=== PATIENT | male | born 1950 | race Caucasian/White ===

== ENCOUNTER 2018-02-14 16:57 | Inpatient (IN) | payer OTHER ==
--- NOTE | 2018-02-14 17:32 | EDPHY ---
H & P Stated Complaint: W/D Time Seen by Provider: 02/14/18 16:59 HPI/ROS: CHIEF COMPLAINT: "I am having trouble walking" HISTORY OF PRESENT ILLNESS: 67-year-old male arrives via ambulance from the [facility] [place]. Patient self transported from his home in [place] to [facility] this morning for evaluation of a scalp laceration. States that last evening approximately 9:00 p.m. While he had been drinking alcohol he sustained a mechanical fall falling forward impacting his head. He does admit to history of heavy alcohol abuse. He drove to [facility] this afternoon where he had CT scan of the head, C-spine, chest, abdomen, pelvis all which were negative for posttraumatic sequelae as well as left foot x-ray which is negative. He was discharged to [facility] however upon arrival there was unable to ambulate without assistance never transport to [facility] ER. States that this is a new complaint. He has no complaints of pain. No headache. No peripheral paresthesia, weakness, numbness. No chest pain. No nausea no vomiting. No hallucination. REVIEW OF SYSTEMS: 10 systems reviewed and negative with the exception of the elements mentioned in the history of present illness PAST MEDICAL/SURGICAL HISTORY: no anticoagulant use, no relevant medical/ surgical history SOCIAL HISTORY: Positive for heavy daily alcohol abuse. PHYSICAL EXAM 1) GENERAL: Well-developed, well-nourished, alert and oriented. Appears to be in no acute distress. Answering questions appropriately. 2) HEAD: Normocephalic, facial and scalp laceration measuring 18 cm which is stapled and sutured. 3) HEENT: Pupils equal, round, reactive to light bilaterally. Negative Horners. Nasopharynx, oropharynx, clear. No deformity or angulation of nose. No septal hematoma. No rhinorrhea. No oral trauma. Ears bilaterally with normal tympanic membranes. No hemotympanum. No fluid or blood in the external auditory canal. No raccoon eyes. No Cohen sign. Teeth are normally aligned with no gross malocclusion, TMJ bilaterally nontender, facial bones nontender including the zygomatic arch, maxilla mandible. 4) NECK: No cervical collar is on. Posterior cervical spine is nontender, no stepoff, no effusion. Full range of motion which does not elicit any midline cervical spine pain, no posterior midline tenderness, no step-off. 5) LUNGS: Clear to auscultation bilaterally, no wheezes, no rhonchi, no retractions. No obvious signs of trauma. No chest wall pain. No flaring, no grunting. Moving symmetrically. No crepitus. 6) HEART: [Regular rate and rhythm, 7) ABDOMEN: No guarding, no rebound, no focal tenderness, no peritoneal signs, no signs of trauma, no ecchymosis 8) MUSCULOSKELETAL: Moving all extremities, no focal areas of tenderness, no obvious trauma. 9) BACK: No midline vertebral tenderness, no fluctuance, no step-off, no obvious trauma, no visual or palpable abnormality. 10) SKIN: No laceration. No abrasion 11) NEURO: Awake, alert, and oriented to person, place and time. Answers questions appropriately. There were no obvious focal neurologic abnormalities. Cerebellar dysfunction noted , notably [id number] and ingram to heel are difficult for the patient. Cranial nerves 2 through to 12 intact. Normal steady gait. Upper and lower extremities bilaterally with strength 5 / 5, reflexes 2+. DIFFERENTIAL DIAGNOSIS: In no particular order include but limited to delirium tremens, acute alcohol withdrawal, posterior circulation stroke - Personal History Current Tetanus Diphtheria and Acellular Pertussis (TDAP): Yes Tetanus Vaccine Date: 02/14/18 - Medical/Surgical History Hx Asthma: No Hx Chronic Respiratory Disease: No Hx Diabetes: No Hx Cardiac Disease: No Hx Renal Disease: No Hx Cirrhosis: No Hx Alcoholism: Yes Hx HIV/AIDS: No Hx Splenectomy or Spleen Trauma: No Other PMH: ALCOHOLISM, FALLS, HTN, DEPRESSION, OSTEOPOROSIS, HIGH CHOLESTEROL - Social History Smoking Status: Never smoked Constitutional: Initial Vital Signs Temperature (C) 36.7 C 02/14/18 16:58 Heart Rate 92 02/14/18 16:58 Respiratory Rate 16 02/14/18 16:58 Blood Pressure 127/79 H 02/14/18 16:58 O2 Sat (%) 94 02/14/18 16:58 O2 Delivery Mode Room Air Allergies/Adverse Reactions: Penicillins Allergy (Verified 02/14/18 21:17) Unknown Sulfa (Sulfonamide Antibiotics) Allergy (Verified 02/14/18 21:17) Unknown Home Medications: Medication Instructions Recorded Acetaminophen [Tylenol 325mg (*)] 650 mg PO DAILY 02/14/18 Aspirin [Aspirin 81mg (*)] 81 mg PO BID 02/14/18 DULoxetine [Cymbalta 60 MG (*)] 60 mg PO DAILY 02/14/18 Herbals/Supplements -Info Only 1 ea PO DAILY 02/14/18 Hydrochlorothiazide [HCTZ (*)] 50 mg PO DAILY 02/14/18 Lisinopril [Zestril 10 mg (*)] 10 mg PO DAILY 02/14/18 Loratadine [Claritin] 10 mg PO DAILY PRN 02/14/18 Multivitamins [Multivitamin (*)] 1 each PO DAILY 02/14/18 Pseudoephedrine HCl [Sudafed 12 240 mg PO DAILY PRN 02/14/18 Hour 120mg (*)] Simvastatin [Zocor] 20 mg PO HS 02/14/18 Zolpidem Tartrate [Ambien 5MG (*)] 10 mg PO HS 02/14/18 buPROPion SR [Wellbutrin 150mg SR 150 mg PO BID 02/14/18 (*)] Medical Decision Making - Diagnostics Imaging Results: Imaging Impressions Brain MRI 02/14/18 17:40 Impression: 1. Subarachnoid blood suspected along the anteromedial aspect of left temporal lobe and left side of the interpeduncular cistern related to recent trauma. 2. Soft tissue contusion over the left frontal and temporal bones with skin rene present. 3. No abnormal intracranial mass or enhancement. If symptoms worsen, additional imaging may be necessary. Findings discussed with Geovanna LIZ at 20:36 hour, 02/14/2018. Images reviewed myself ED Course/Re-evaluation: 5:35 p.m.: I reviewed the patient's medical records from [facility] few hours ago which include CT imaging of the head C-spine chest abdomen and pelvis all which were negative for posttraumatic sequelae. Patient is answering questions appropriately and I do not think exhibits signs of delirium. He is able to consult with and the bed and take a few steps however soon as he tries to turn he starts to fall over and is unable to ambulate without assistance. While he was at [facility] this afternoon his alcohol level was 18. Discussed case with secondary supine position Dr. Luis Alberto Diamond at this time. We will obtain MRI of the brain. 8:19 p.m.: Patient has been re-evaluated with serial exams. He is evaluated at this time. Watching TV, answering questions appropriately, smiling. However the patient attempted to ambulate is unable to ambulate without assistance, complaining of lightheadedness, dizziness. 840 pm: Consultation with Neurosurgery Dr. Ferreira will consult for Neurosurgery regarding the patient's traumatic subarachnoid 8:45 p.m.: Consultation with Dr. Luigi Moore, trauma service, recommends hospitalist or Neurosurgery primary admission as the patient has single system injury 8:48 pm: Consultation with Dr. Adler who will admit primarily - Data Points Laboratory Results: Laboratory Results 02/14/18 17:24 02/14/18 17:24 02/14/18 02/14/18 02/14/18 17:50 17:24 17:24 WBC RBC Hgb Hct MCV MCH MCHC RDW Plt Count MPV Neut % (Auto) Lymph % (Auto) Hamlin % (Auto) Eos % (Auto) Baso % (Auto) Nucleat RBC Rel Count Absolute Neuts (auto) Absolute Lymphs (auto) Absolute Monos (auto) Absolute Eos (auto) Absolute Basos (auto) Absolute Nucleated RBC Immature Gran % Immature Gran # PT INR APTT Sodium 132 mEq/L L mEq/L (135-145) Potassium 4.2 mEq/L mEq/L (3.3-5.0) Chloride 96 mEq/L L mEq/L (97-110) Carbon Dioxide 26 mEq/l mEq/l (22-31) Anion Gap 10 mEq/L mEq/L (6-14) BUN 49 mg/dL H mg/dL (7-23) Creatinine 1.6 mg/dL H mg/dL (0.7-1.3) Estimated GFR 44 Glucose 103 mg/dL H mg/dL (70-100) Calcium 9.3 mg/dL mg/dL (8.5-10.4) Total Bilirubin 1.0 mg/dL mg/dL (0.1-1.4) Conjugated Bilirubin 0.4 mg/dL mg/dL (0.0-0.5) Unconjugated Bilirubin 0.6 mg/dL mg/dL (0.0-1.1) AST 28 IU/L IU/L (17-59) ALT 40 IU/L IU/L (21-72) Alkaline Phosphatase 57 IU/L IU/L (38-126) Ammonia < 9.0 uMOL/L L uMOL/L (9.0-30.0) Total Protein 6.0 g/dL L g/dL (6.3-8.2) Albumin 3.8 g/dL g/dL (3.5-5.0) Ethyl Alcohol < 10 mg/dL mg/dL (0-10) 02/14/18 02/14/18 17:24 17:24 WBC 7.13 10^3/uL 10^3/uL (3.80-9.50) RBC 3.92 10^6/uL L 10^6/uL (4.40-6.38) Hgb 12.9 g/dL L g/dL (13.7-17.5) Hct 37.4 % L % (40.0-51.0) MCV 95.4 fL fL (81.5-99.8) MCH 32.9 pg pg (27.9-34.1) MCHC 34.5 g/dL g/dL (32.4-36.7) RDW 13.2 % % (11.5-15.2) Plt Count 150 10^3/uL 10^3/uL (150-400) MPV 9.6 fL fL (8.7-11.7) Neut % (Auto) 77.7 % H % (39.3-74.2) Lymph % (Auto) 10.9 % L % (15.0-45.0) Hamlin % (Auto) 10.4 % % (4.5-13.0) Eos % (Auto) 0.3 % L % (0.6-7.6) Baso % (Auto) 0.1 % L % (0.3-1.7) Nucleat RBC Rel Count 0.0 % % (0.0-0.2) Absolute Neuts (auto) 5.54 10^3/uL 10^3/uL (1.70-6.50) Absolute Lymphs (auto) 0.78 10^3/uL L 10^3/uL (1.00-3.00) Absolute Monos (auto) 0.74 10^3/uL 10^3/uL (0.30-0.80) Absolute Eos (auto) 0.02 10^3/uL L 10^3/uL (0.03-0.40) Absolute Basos (auto) 0.01 10^3/uL L 10^3/uL (0.02-0.10) Absolute Nucleated RBC 0.00 10^3/uL 10^3/uL (0-0.01) Immature Gran % 0.6 % % (0.0-1.1) Immature Gran # 0.04 10^3/uL 10^3/uL (0.00-0.10) PT 14.3 SEC SEC (12.0-15.0) INR 1.09 (0.83-1.16) APTT 30.0 SEC SEC (23.0-38.0) Sodium Potassium Chloride Carbon Dioxide Anion Gap BUN Creatinine Estimated GFR Glucose Calcium Total Bilirubin Conjugated Bilirubin Unconjugated Bilirubin AST ALT Alkaline Phosphatase Ammonia Total Protein Albumin Ethyl Alcohol Departure - Departure Disposition: [facility] Inpatient Acute Clinical Impression: Subarachnoid hemorrhage, History of alcohol abuse Condition: Fair
[2018-02-14] MEDS ORDERED: LORazepam 2 MG/ML INJ IVP PRN (17:33)
[2018-02-14] MEDS ORDERED: LORazepam 1 MG TAB PO PRN (17:33)
[2018-02-14 17:56] LABS: INR 1.09 (0.83-1.16); PLATELET COUNT 150 10^3/uL (150-400); PROTIME(PATIENT) 14.3 SEC (12.0-15.0)
[2018-02-14] MEDS ORDERED: GADOBUTROL 10 ML VIAL IVP ONE (19:41)
[2018-02-14] MEDS ORDERED: ONDANSETRON DISINTEGRATING 4 MG TAB PO PRN (22:24)
[2018-02-14] MEDS ORDERED: ONDANSETRON 4 MG/2 ML VIAL IVP PRN (22:24)
[2018-02-14] MEDS ORDERED: FLUMAZENIL 0.5 MG/5 ML MDV IVP PRN (22:36)
--- NOTE | 2018-02-14 23:43 | PDGENHP ---
History and Physical - Chief Complaint Fall, ataxia - History of Present Illness 67 yo M w/ ETOH use d/o, HTN, and depression presents after multiple falls. The patient tells me he has fallen each of the last 3 nights. He has injured his R hip, L foot, and his forehead. He underwent trauma evaluation at [facility] (CTH, CT C-spine, CT C/A/P, L foot XR), which was all negative. He was sent to the [facility] but continued to have trouble with his gait so was sent to [facility] ED. In our ED and brain MRI revealed a traumatic subarachnoid hemorrhage so he is being admitted for observation of this. He denies neurologic symptoms to me at this time. Of note, he drinks 2-4 glasses of vodka daily. He has done this for several years. He has no recent history of ETOH withdrawal because he has drank every day without stopping for several years. Case discussed with Dr. Adler; records reviewed and summarized above. History Information - Allergies/Home Medication List Allergies/Adverse Reactions: Penicillins Allergy (Verified 02/14/18 21:17) Unknown Sulfa (Sulfonamide Antibiotics) Allergy (Verified 02/14/18 21:17) Unknown Home Medications: Acetaminophen [Tylenol 325mg (*)] 650 mg PO DAILY 02/14/18 [Last Taken Unknown] Aspirin [Aspirin 81mg (*)] 81 mg PO BID 02/14/18 [Last Taken Unknown] DULoxetine [Cymbalta 60 MG (*)] 60 mg PO DAILY 02/14/18 [Last Taken Unknown] Herbals/Supplements -Info Only 1 ea PO DAILY 02/14/18 [Last Taken Unknown] Hydrochlorothiazide [HCTZ (*)] 50 mg PO DAILY 02/14/18 [Last Taken Unknown] Lisinopril [Zestril 10 mg (*)] 10 mg PO DAILY 02/14/18 [Last Taken Unknown] Loratadine [Claritin] 10 mg PO DAILY PRN 02/14/18 [Last Taken Unknown] Multivitamins [Multivitamin (*)] 1 each PO DAILY 02/14/18 [Last Taken Unknown] Pseudoephedrine HCl [Sudafed 12 Hour 120mg (*)] 240 mg PO DAILY PRN 02/14/18 [ Last Taken Unknown] Simvastatin [Zocor] 20 mg PO HS 02/14/18 [Last Taken Unknown] Zolpidem Tartrate [Ambien 5MG (*)] 10 mg PO HS 02/14/18 [Last Taken Unknown] buPROPion SR [Wellbutrin 150mg SR (*)] 150 mg PO BID 02/14/18 [Last Taken Unknown] I have personally reviewed and updated: family history, medical history - Past Medical History hypertension Additional medical history: Depression - Surgical History Reports: no pertinent surgical hx - Family History Positive for: cancer (Breast, lung) - Social History Smoking Status: Former smoker Alcohol Use: Heavy Review of Systems Review of Systems: ROS: 10pt was reviewed & negative except for what was stated in HPI & below Physical Exam Physical Exam: Temp Pulse Resp BP Pulse Ox 36.9 C 100 14 137/78 H 90 L 02/14/18 23:35 02/14/18 23:35 02/14/18 23:35 02/14/18 23:35 02/14/18 23:35 Constitutional: no apparent distress, appears nourished Eyes: PERRL, EOMI Ears, Nose, Mouth, Throat: moist mucous membranes, other (L frontal laceration with sutures in place) Cardiovascular: regular rate and rhythym, no murmur, rub, or gallop Respiratory: no respiratory distress, clear to auscultation Gastrointestinal: normoactive bowel sounds, soft, non-tender abdomen Skin: warm, normal color Neurologic: AAOx3, CN II-XII Intact Psychiatric: interacting appropriately, not anxious Lab Data & Imaging Review 02/14/18 17:24 02/14/18 17:24 WBC 7.13 10^3/uL (3.80-9.50) 02/14/18 17:24 RBC 3.92 10^6/uL (4.40-6.38) L 02/14/18 17:24 Hgb 12.9 g/dL (13.7-17.5) L 02/14/18 17:24 Hct 37.4 % (40.0-51.0) L 02/14/18 17:24 MCV 95.4 fL (81.5-99.8) 02/14/18 17:24 MCH 32.9 pg (27.9-34.1) 02/14/18 17:24 MCHC 34.5 g/dL (32.4-36.7) 02/14/18 17:24 RDW 13.2 % (11.5-15.2) 02/14/18 17:24 Plt Count 150 10^3/uL (150-400) 02/14/18 17:24 MPV 9.6 fL (8.7-11.7) 02/14/18 17:24 Neut % (Auto) 77.7 % (39.3-74.2) H 02/14/18 17:24 Lymph % (Auto) 10.9 % (15.0-45.0) L 02/14/18 17:24 Johnston % (Auto) 10.4 % (4.5-13.0) 02/14/18 17:24 Eos % (Auto) 0.3 % (0.6-7.6) L 02/14/18 17:24 Baso % (Auto) 0.1 % (0.3-1.7) L 02/14/18 17:24 Nucleat RBC Rel Count 0.0 % (0.0-0.2) 02/14/18 17:24 Absolute Neuts (auto) 5.54 10^3/uL (1.70-6.50) 02/14/18 17:24 Absolute Lymphs (auto) 0.78 10^3/uL (1.00-3.00) L 02/14/18 17:24 Absolute Monos (auto) 0.74 10^3/uL (0.30-0.80) 02/14/18 17:24 Absolute Eos (auto) 0.02 10^3/uL (0.03-0.40) L 02/14/18 17:24 Absolute Basos (auto) 0.01 10^3/uL (0.02-0.10) L 02/14/18 17:24 Absolute Nucleated RBC 0.00 10^3/uL (0-0.01) 02/14/18 17:24 Immature Gran % 0.6 % (0.0-1.1) 02/14/18 17:24 Immature Gran # 0.04 10^3/uL (0.00-0.10) 02/14/18 17:24 PT 14.3 SEC (12.0-15.0) 02/14/18 17:24 INR 1.09 (0.83-1.16) 02/14/18 17:24 APTT 30.0 SEC (23.0-38.0) 02/14/18 17:24 Sodium 132 mEq/L (135-145) L 02/14/18 17:24 Potassium 4.2 mEq/L (3.3-5.0) 02/14/18 17:24 Chloride 96 mEq/L (97-110) L 02/14/18 17:24 Carbon Dioxide 26 mEq/l (22-31) 02/14/18 17:24 Anion Gap 10 mEq/L (6-14) 02/14/18 17:24 BUN 49 mg/dL (7-23) H 02/14/18 17:24 Creatinine 1.6 mg/dL (0.7-1.3) H 02/14/18 17:24 Estimated GFR 44 02/14/18 17:24 Glucose 103 mg/dL (70-100) H 02/14/18 17:24 Calcium 9.3 mg/dL (8.5-10.4) 02/14/18 17:24 Total Bilirubin 1.0 mg/dL (0.1-1.4) 02/14/18 17:24 Conjugated Bilirubin 0.4 mg/dL (0.0-0.5) 02/14/18 17:24 Unconjugated Bilirubin 0.6 mg/dL (0.0-1.1) 02/14/18 17:24 AST 28 IU/L (17-59) 02/14/18 17:24 ALT 40 IU/L (21-72) 02/14/18 17:24 Alkaline Phosphatase 57 IU/L (38-126) 02/14/18 17:24 Ammonia < 9.0 uMOL/L (9.0-30.0) L 02/14/18 17:50 Total Protein 6.0 g/dL (6.3-8.2) L 02/14/18 17:24 Albumin 3.8 g/dL (3.5-5.0) 02/14/18 17:24 Ethyl Alcohol < 10 mg/dL (0-10) 02/14/18 17:24 Imaging Review: Imaging Impressions Brain MRI 02/14/18 17:40 Impression: 1. Subarachnoid blood suspected along the anteromedial aspect of left temporal lobe and left side of the interpeduncular cistern related to recent trauma. 2. Soft tissue contusion over the left frontal and temporal bones with skin rene present. 3. No abnormal intracranial mass or enhancement. If symptoms worsen, additional imaging may be necessary. Findings discussed with Geovanna LIZ at 20:36 hour, 02/14/2018. Assessment & Plan Assessment: 67 yo M w/ ETOH use disorder, HTN, and depression presents with ataxia and traumatic SAH. Plan: 1. Subarachnoid hemorrhage - Due to trauma from a fall; he denies neurologic symptoms at this time but has been ataxic. However, it seems the ataxia preceded the SAH itself. - Admit for observation - q4h neuro check - Maintain SBP<160 - Neurosurgery (Dr. Ferreira) consulted, will evaluate in the morning 2. Ataxia - I suspect this is related to heavy ETOH use. This has led to falls each of the last 3 nights. - High dose thiamine IV - PT/OT evaluations 3. ETOH use disorder - Drink 2-4 glasses of vodka daily and has done so for several years. No history of recent withdrawal due to daily drinking. - [facility] protocol ordered - High dose thiamine as above - Daily MVI, folate 4. HTN - Continue home medications pending reconciliation 5. Depression - Likely contributing to heavy drinking; continue antidepressants pending reconciliation Diet - Regular Code - Full Ppx - SCDs Dispo - Admit under observation status
[2018-02-14] MEDS: THIAMINE HCL 500 MG in NS 100 ML IV SCH (23:45)
[2018-02-14] MEDS ORDERED: hydrALAZINE 25 MG TAB PO PRN (23:47)
[2018-02-15 04:58] LABS: PLATELET COUNT 122 10^3/uL (150-400)
[2018-02-15] MEDS: MULTIVITAMINS 1 EACH TAB PO SCH (08:48)
[2018-02-15] MEDS: FOLIC ACID 1 MG TAB PO SCH (08:48)
[2018-02-15] MEDS: THIAMINE HCL 500 MG in NS 100 ML IV SCH (08:49)
--- NOTE | 2018-02-15 10:54 | HOSPPROG ---
Hospitalist Progress Note Assessment/Plan: 67-year-old alcoholic is admitted after multiple falls presenting with a subarachnoid hemorrhage. He had initially had presented to [facility] had a CT so again done which did not show any bleeding had some stitches placed and was discharged to the [facility]. When he continued to have difficulty ambulating dark refused to admit him and sent him to the emergency department here where he was diagnosed with a traumatic subarachnoid hemorrhage by MRI and is admitted for observation. Currently he denies any significant discomfort # subarachnoid hemorrhage, await Neurosurgery evaluation for planned # alcoholism 2 to 4+ glasses of vodka daily. He has been drinking continually for 22 years and has not been abstinent for more than a day. He denies any withdrawal symptoms however I do not know if he has ever been sober that long. * Continue CIWA * Disposition once neurosurgery evaluation * pt with significant abnormal gait and ataxia, at risk for ongoing falls. With his SAH, needs additional midnight stay for therapy and eval of this # abnormal gait, high-dose vitamin B12 and thiamine given continue PT Subjective: Patient new to me and chart reviewed, somewhat sleepy but speech is fluent and he is currently appropriate. Objective: Vital Signs Temp Pulse Resp BP Pulse Ox 36.7 C 89 17 134/82 H 91 L 02/15/18 07:25 02/15/18 07:25 02/15/18 07:25 02/15/18 07:25 02/15/18 07:25 Laboratory Results 02/15/18 04:41 02/15/18 04:41 02/14/18 02/15/18 02/16/18 05:59 05:59 05:59 Intake Total 555 Output Total 450 Balance 105 PT 14.3 SEC (12.0-15.0) 02/14/18 17:24 INR 1.09 (0.83-1.16) 02/14/18 17:24 - Physical Exam Constitutional: no apparent distress, chronically ill appearing, unkempt Eyes: PERRL Ears, Nose, Mouth, Throat: moist mucous membranes Cardiovascular: regular rate and rhythym Respiratory: no respiratory distress Gastrointestinal: soft, non-tender abdomen Genitourinary: no bladder fullness Skin: normal color, other (Laceration stapled on his left frontal area) Musculoskeletal: abnormal gait Neurologic: No AAOx3 (Did not know date) Psychiatric: interacting appropriately, not anxious ICD10 Worksheet Patient Problems: Problems Problem Status Onset Subarachnoid hemorrhage Acute History of alcohol abuse Acute
[2018-02-15] MEDS: LORazepam 2 MG/ML INJ IVP PRN ×2 (18:54→23:44)
[2018-02-15] MEDS: buPROPion SR 150 MG TAB PO SCH (20:08)
[2018-02-15] MEDS: ATORVASTATIN CALCIUM 10 MG TAB PO SCH (20:08)
[2018-02-15] MEDS: ZOLPIDEM TARTRATE 5 MG TAB PO SCH (20:08)
--- NOTE | 2018-02-15 21:01 | GCON ---
The patient was seen by Dr. Galvan at approximately 1530, who felt it was appropriate to sign off on the same day. REASON FOR CONSULTATION: Traumatic subarachnoid hemorrhage after 3 repeated falls. HISTORY OF PRESENT ILLNESS: The patient is a 67-year-old male with a history of alcohol abuse. He has had multiple falls while drinking over the last 3 nights. He was seen in the [facility] after one of his falls, received multiple scans, all of which were negative, and he was just discharged to [facility]. At [facility] he was found to have ataxic gait and was sent to [facility] ED for admission. A brain MRI was ordered in the ED. Imaging showed a questionable small amount of subarachnoid blood along the anterior medial aspect of the left temporal lobe on the left side of the interpeduncular cistern. The patient had no other neurological injuries. He was admitted for observation. Seen at the bedside this morning. He has no complaints of dizziness, nausea, vomiting, lethargy, double vision, tinnitus. He states his balance has been off for the past several days. He admits drinking while this is. He does state that he has had some increased anxiety and increased dizziness. He had no weakness numbness, or tingling. PAST MEDICAL HISTORY: Includes hypertension and depression. The patient also states anxiety. PAST SURGICAL HISTORY: He had no surgical history reported. FAMILY HISTORY: Positive for breast and lung cancer. SOCIAL HISTORY: He is a former smoker. He is a heavy drinker. He reports 2 to 4 glasses of vodka daily. ALLERGIES: Penicillins, sulfonamide antibiotics. HOME MEDICATIONS: Include Tylenol 650 mg daily, aspirin 81 mg twice a day, Cymbalta 60 mg daily. The patient takes herbal supplements daily. Hydrochlorothiazide 50 mg daily. Lisinopril 10 mg daily. Loratadine 10 mg daily, multivitamin daily. Sudafed 240 mg daily as needed, simvastatin 20 mg nightly, Ambien 10 mg as needed at night, and Wellbutrin 150 mg sustained release twice daily. REVIEW OF SYSTEMS: Negative except as stated above in the HPI. PHYSICAL EXAMINATION: GENERAL APPEARANCE: The patient is alert and oriented x3. Speech is clear and fluent. HEENT: His extraocular movements are intact. His pupils are equal and reactive to light. He has a large laceration on his left forehead extending to the scalp that is sutured shut, and some ecchymosis around the left eye. NEUROLOGICAL: He has no facial droop. Tongue protrusion is midline. Cranial nerves 2 through 12 appeared grossly intact. He moves all extremities x4. He has no pronator drift. Strength is 5/5 and equal. Gait exam was deferred. The patient's sensation is intact to light touch. This is a nonfocal neurological exam. ASSESSMENT AND PLAN: This is a 67-year-old male with a history of alcohol use. He re-presented to the emergency room after multiple days of falls, a large laceration of the scalp, and ataxic gait. Imaging shows a questionable very small subarachnoid hemorrhage that is not compressive, and the patient is neurologically intact. The patient is admitted with blood pressure less than 160, which is fine. He may remain on q.4 hours neuro checks for the duration of his admission. No need for any further scans. We would recommend holding aspirin for 7 days total given the possibility of intracranial blood. We would recommend workup for his questionable dizziness if this is thought not to be related to his alcohol use. The patient will be seen by Dr. Galvan later this afternoon at which time Neurosurgery will likely sign off. The patient was seen by Dr. Galvan at approximately 1530, who felt it was appropriate to sign off on the same day. Thank you for this consultation. Please call Neurosurgery with any additional questions or concerns. Please call us with any changes in his physical exam. /[id number]/MODL and [id number]/MODL MTDD
[2018-02-16] MEDS: ACETAMINOPHEN 325 MG TAB PO PRN ×2 (07:02→16:55)
[2018-02-16] MEDS: LISINOPRIL 10 MG TAB PO SCH (08:36)
[2018-02-16] MEDS: MULTIVITAMINS 1 EACH TAB PO SCH ×2 (08:36→09:07)
[2018-02-16] MEDS: DULoxetine 60 MG CAP PO SCH (08:36)
[2018-02-16] MEDS: buPROPion SR 150 MG TAB PO SCH ×2 (08:36→21:04)
[2018-02-16] MEDS: FOLIC ACID 1 MG TAB PO SCH (08:37)
[2018-02-16] MEDS: THIAMINE HCL 500 MG in NS 100 ML IV SCH (08:37)
[2018-02-16] MEDS ORDERED: CETIRIZINE 10 MG TAB PO PRN (09:00)
[2018-02-16] MEDS: LORazepam 2 MG/ML INJ IVP PRN ×4 (09:11→21:05)
[2018-02-16] MEDS: HYDROCHLOROTHIAZIDE 50 MG TAB PO SCH (09:41)
--- NOTE | 2018-02-16 10:52 | HOSPPROG ---
Hospitalist Progress Note Assessment/Plan: 67-year-old alcoholic is admitted after multiple falls presenting with a subarachnoid hemorrhage. He had initially had presented to [facility] had a CT so again done which did not show any bleeding had some stitches placed and was discharged to the [facility]. When he continued to have difficulty ambulating dark refused to admit him and sent him to the emergency department here where he was diagnosed with a traumatic subarachnoid hemorrhage by MRI and is admitted for observation. Currently he denies any significant discomfort. He is quite ataxic and high fall risk from his alcoholism and withdrawal. # subarachnoid hemorrhage, resume asa in 7 days, no further imaging required per NS # alcoholism 2 to 4+ glasses of vodka daily. He has been drinking continually for 22 years and has not been abstinent for more than a day. He denies any withdrawal symptoms however I do not know if he has ever been sober that long. * Continue CIWA * PT/OT eval currently recommending SNF, Pt high fall risk. * Will continue CIWA, PT and have DC planning talk with patient and family about DC plans. # abnormal gait, high-dose vitamin B12 and thiamine given continue PT Subjective: depression about current situation. Determined to stop drinking but has been alcoholic for many years. Daughters are having issues so doesn't want to share current condition with them. Realizes he needs help. Objective: Vital Signs Temp Pulse Resp BP Pulse Ox 36.8 C 83 18 148/87 H 93 02/16/18 08:33 02/16/18 08:33 02/16/18 08:33 02/16/18 08:33 02/16/18 08:33 Laboratory Results 02/15/18 04:41 02/16/18 04:56 02/15/18 02/16/18 02/17/18 05:59 05:59 05:59 Intake Total 555 650 300 Output Total 450 Balance 105 650 300 PT 14.3 SEC (12.0-15.0) 02/14/18 17:24 INR 1.09 (0.83-1.16) 02/14/18 17:24 - Physical Exam Constitutional: chronically ill appearing Eyes: PERRL Cardiovascular: regular rate and rhythym Respiratory: no respiratory distress, reduced air movement Gastrointestinal: soft, non-tender abdomen Genitourinary: no bladder fullness Skin: warm, other (Large laceration on his left forehead, will eventually need stitches out) Musculoskeletal: abnormal gait Psychiatric: interacting appropriately ICD10 Worksheet Patient Problems: Problems Problem Status Onset Subarachnoid hemorrhage Acute History of alcohol abuse Acute
[2018-02-16] MEDS ORDERED: MAGNESIUM HYDROXIDE 30 ML UDCUP PO PRN (14:49)
[2018-02-16] MEDS ORDERED: BISACODYL 10 MG SUPP PR PRN (14:49)
[2018-02-16] MEDS ORDERED: LACTULOSE 20 GM/30 ML UDCUP PO PRN (14:49)
[2018-02-16] MEDS ORDERED: POLYETHYLENE GLYCOL 3350 17 GM PKT PO PRN (14:49)
--- NOTE | 2018-02-16 17:04 | ASMTCMCOM ---
CM Note CM Note Notes: Long conversation with patient. He recently moved and hasn't fully unpacked this is difficult for him-living in disorganization. 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 Patient thinks that he can ask for 2 weeks off to get organized, find a therapist, go to an AA grp at his [facility], check with his ins about IOP ETOH tx, and ask for family/friend support in unpacking and getting organized. Date Signed: 02/16/2018 05:04 PM Electronically Signed By:Kerry Mcgee LCSW
--- NOTE | 2018-02-16 19:19 | PDMN ---
Medical Necessity Medical necessity: [facility] substance related disorder- SAH on MRI- due to fall, changed to INPT 02/15/18 for ongoing PT/OT high fall risk due to severe ETOH use 2-4 glasses vodka daily X 22 yrs. pt on CIWA , ataxic, further monitoring and tx needed > 2 MN
[2018-02-16] MEDS: ATORVASTATIN CALCIUM 10 MG TAB PO SCH (21:04)
[2018-02-16] MEDS: SENNOSIDES/DOCUSATE SODIUM TAB PO SCH (21:06)
[2018-02-16] MEDS: ZOLPIDEM TARTRATE 5 MG TAB PO SCH (21:06)
[2018-02-17] MEDS: THIAMINE HCL 100 MG TAB PO SCH (10:59)
[2018-02-17] MEDS: buPROPion SR 150 MG TAB PO SCH ×2 (11:00→21:49)
[2018-02-17] MEDS: DULoxetine 60 MG CAP PO SCH (11:00)
[2018-02-17] MEDS: FOLIC ACID 1 MG TAB PO SCH (11:00)
[2018-02-17] MEDS: LISINOPRIL 10 MG TAB PO SCH (11:00)
[2018-02-17] MEDS: HYDROCHLOROTHIAZIDE 50 MG TAB PO SCH (11:00)
[2018-02-17] MEDS: SENNOSIDES/DOCUSATE SODIUM TAB PO SCH ×2 (11:01→21:49)
[2018-02-17] MEDS: MULTIVITAMINS 1 EACH TAB PO SCH ×2 (11:04)
[2018-02-17] MEDS: ACETAMINOPHEN 325 MG TAB PO PRN (14:17)
--- NOTE | 2018-02-17 16:23 | ASMTCMCOM ---
CM Note CM Note Notes: I met with patient to discuss PT recommendation for SNF or home with supervision. He wants to go home and does not want to inconvience either of his two daughters with supervising him. He does, however, want a few more days in the hospital or some other "lower level of care" before returning home. I explained how SNF rehab would fulfill this desire. Patient is anxious about going because he won't be able to access his work things (he works from home), but he realizes that it could be better for him prison. He does endorse wanting to quit drinking and believes that this hospitalization has been a "wake up call." He says that he will have his daughters visit [facility] and [facility] to see if they would be suitable. I encouraged him to make a decision in anticipation of d/c in the next day or so. Case Management will follow. Date Signed: 02/17/2018 04:23 PM Electronically Signed By:Paz Branch RN
--- NOTE | 2018-02-17 18:02 | HOSPPROG ---
Hospitalist Progress Note Assessment/Plan: Subjective Follow-up on subarachnoid hemorrhage. Patient's daughter was present at the bedside today and we had a discussion regarding his hypertension management and depression and alcohol use. He and his daughter were also concerned about a tremor that he has had. He states his father had a similar tremor. He notes that when he extends his hands outward. No pill rolling tremor has been noted by his daughter. Patient states his last drink of alcohol was 4 days ago. Objective Vital signs as detailed below Exam General-awake alert conversant no acute distress Heart-regular rate and rhythm no murmurs Lungs-Clear to auscultation with normal respiratory effort Abdomen-soft nontender nondistended normal bowel sounds -no Morin catheter in place Extremities-no significant pitting edema or calf pain with palpation Skin-left frontal laceration sutured without any significant erythema or purulence Neuro-no horizontal nystagmus appreciated Labs as detailed below. Assessment and plan Subarachnoid hemorrhage-neurosurgery has consulted and no intervention currently planned. Continue to monitor blood pressure closely. Neurosurgery has formally signed off the case. 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 No other physical exam findings to suggest Parkinson's disease. Depression-significant. He has been on Cymbalta and Wellbutrin in recently started seeing a psychologist as well. Both he and his daughter asked for psychiatric consultation for 2nd opinion on his current medical therapy. I did talk with Psychiatry today and requested the formal consultation. Await further recommendations. Alcohol withdrawal-we discussed that his tremor may also be exacerbated by alcohol withdrawal. However at this time he is 4 days since his last alcoholic drink. He has had no seizure activity. He stated that IV Ativan which was used earlier in the hospitalization made him fall asleep and he refused taking this any more. I adjusted the Ativan to an oral tablet at a 0.5 mg every 4 hr as needed. We discussed that this could also be used to help with sleep as he states he drinks alcohol at night to facilitate going to bed. Acute kidney injury-improving with creatinine going from 1.6-1.3. It sounds like this has come up in the setting of recently starting on antihypertensives. He is currently on 10 mg of lisinopril and 50 mg of hydrochlorothiazide. Considering the improvement I think we can hold off on additional IV fluids and I will plan on rechecking again tomorrow morning. Hypertension-I recommend we adjust his hydrochlorothiazide to 25 mg daily instead of 50 mg daily. This may have had a role with his creatinine value and hyponatremia initially seen. DVT prophylaxis-lower risk as patient is mobile and high risk of use considering subarachnoid hemorrhage. Disposition-likely home when medically clear. Objective: Vital Signs Temp Pulse Resp BP Pulse Ox 36.7 C 93 16 94/60 L 91 L 02/17/18 16:00 02/17/18 16:00 02/17/18 16:00 02/17/18 16:00 02/17/18 16:00 Laboratory Results 02/16/18 04:56 02/16/18 02/17/18 02/18/18 05:59 05:59 05:59 Intake Total 650 1250 Balance 650 1250 PT 14.3 SEC (12.0-15.0) 02/14/18 17:24 INR 1.09 (0.83-1.16) 02/14/18 17:24 ICD10 Worksheet Patient Problems: Problems Problem Status Onset History of alcohol abuse Acute Subarachnoid hemorrhage Acute
[2018-02-17] MEDS: ATORVASTATIN CALCIUM 10 MG TAB PO SCH (21:48)
[2018-02-18] MEDS: LORazepam 0.5 MG TAB PO PRN (01:28)
[2018-02-18] MEDS: buPROPion SR 150 MG TAB PO SCH (08:12)
[2018-02-18] MEDS: DULoxetine 60 MG CAP PO SCH (08:13)
[2018-02-18] MEDS: LISINOPRIL 10 MG TAB PO SCH (08:16)
[2018-02-18] MEDS: THIAMINE HCL 100 MG TAB PO SCH (08:17)
[2018-02-18] MEDS: FOLIC ACID 1 MG TAB PO SCH (08:17)
[2018-02-18] MEDS: HYDROCHLOROTHIAZIDE 25 MG TAB PO SCH (08:17)
[2018-02-18] MEDS: SENNOSIDES/DOCUSATE SODIUM TAB PO SCH ×2 (08:18→21:22)
[2018-02-18] MEDS: MULTIVITAMINS 1 EACH TAB PO SCH (08:18)
--- NOTE | 2018-02-18 10:10 | HOSPPROG ---
Hospitalist Progress Note Assessment/Plan: 67-year-old alcoholic is admitted after multiple falls presenting with a subarachnoid hemorrhage. He had initially had presented to [facility] had a CT so again done which did not show any bleeding had some stitches placed and was discharged to the [facility]. When he continued to have difficulty ambulating dark refused to admit him and sent him to the emergency department here where he was diagnosed with a traumatic subarachnoid hemorrhage by MRI and is admitted for observation. Currently he denies any significant discomfort. He is quite ataxic and high fall risk from his alcoholism and withdrawal. # subarachnoid hemorrhage, resume asa in 7 days, no further imaging required per NS * stitches out in 7-10 days. # alcoholism 2 to 4+ glasses of vodka daily. He has been drinking continually for 22 years and has not been abstinent for more than a day. Minimal withdrawal symptoms currently. He is interested in rehab * PT and DC planning * Can DC home, but with risk of etoh and depression will ask psyche to see her. # lightheadedness, Likely multifactorial. Pt with recent addition of BP meds and hypotension. # Depression: on Wellbutrin and Cymbalta. Pt sees a therapist. * Will decrease wellbutrin dose give the possibility of lowering the seizure threshold, however, he has been on this dose for a long time and no evidence of seizures. Will change to 150, may need 300, will defer to psyche. once daily dosing in the morning as well to help with insomnia. * Add trazodone for sleep, no obvious interactions. * Psych to see her in am, can dc home after psyche eval. # Hypertension on lisinopril and HCTZ daily. Recent decrease in dose from 50 to 25 of HCTZ, monitor BP * Would consider decreasing HCTZ or discontinuing it completely, however with possible SAH would need good BP control in the short term # renal insufficiency, has been evaluated as outpatient. Improved overnight, will follow # abnormal gait, high-dose vitamin B12 and thiamine given continue PT chemical DVT proph contraindicated due to SAH Dispo. Pt can go home tomorrow, has resources from for rehab. Will have eval from psyche prior to dc, case discussed with Dr. Moe Subjective: Much more alert today and able to converse. concerned about depression and rehab and convinced he needs to dc ETOH Objective: Vital Signs Temp Pulse Resp BP Pulse Ox 36.7 C 82 16 132/79 H 90 L 02/18/18 08:00 02/18/18 08:00 02/18/18 08:00 02/18/18 08:17 02/18/18 08:00 Laboratory Results 02/16/18 04:56 02/17/18 02/18/18 02/19/18 05:59 05:59 05:59 Intake Total 1250 200 Balance 1250 200 PT 14.3 SEC (12.0-15.0) 02/14/18 17:24 INR 1.09 (0.83-1.16) 02/14/18 17:24 - Physical Exam Constitutional: not in pain, chronically ill appearing Eyes: PERRL, EOMI Ears, Nose, Mouth, Throat: moist mucous membranes Cardiovascular: regular rate and rhythym Respiratory: no respiratory distress, clear to auscultation Gastrointestinal: soft, non-tender abdomen Genitourinary: no bladder tenderness Skin: warm Musculoskeletal: abnormal gait Neurologic: other (fine tremor) Psychiatric: interacting appropriately, depressed ICD10 Worksheet Patient Problems: Problems Problem Status Onset History of alcohol abuse Acute Subarachnoid hemorrhage Acute
--- NOTE | 2018-02-18 15:21 | ASMTCMCOM ---
CM Note CM Note Notes: Pt is clinically accepted at both [facility] and [facility] and does not want to d/c to SNF. Pt is provided Medicare ETOH resources, reports he will start to make calls to see if alcohol rehab is an option. Pt reports he just started seeing a therapist with [facility], he wants to talk to her for guidance. Pt also to talk to his dghtr this evening for support on what to do at d/c. PT rec home/24/hr supervision/ETOH rehab today. While pt has dghtrs for support, pt reports he will not have 24/hr supervision between friends/family. D/c plan of care: Home or ETOH rehab Date Signed: 02/18/2018 03:21 PM Electronically Signed By:MELINA Miller
[2018-02-18] MEDS ORDERED: buPROPion SR 100 MG TAB PO SCH (21:00)
[2018-02-18] MEDS: traZODone 50 MG TAB PO PRN (21:22)
[2018-02-18] MEDS: ATORVASTATIN CALCIUM 10 MG TAB PO SCH (21:22)
[2018-02-19] MEDS: SENNOSIDES/DOCUSATE SODIUM TAB PO SCH ×3 (08:32→21:03)
[2018-02-19] MEDS: HYDROCHLOROTHIAZIDE 25 MG TAB PO SCH ×2 (08:32→08:43)
[2018-02-19] MEDS: DULoxetine 60 MG CAP PO SCH (08:33)
[2018-02-19] MEDS: LISINOPRIL 10 MG TAB PO SCH ×2 (08:33→08:43)
[2018-02-19] MEDS: MULTIVITAMINS 1 EACH TAB PO SCH (08:33)
[2018-02-19] MEDS: THIAMINE HCL 100 MG TAB PO SCH (08:33)
[2018-02-19] MEDS: FOLIC ACID 1 MG TAB PO SCH (08:33)
[2018-02-19] MEDS ORDERED: buPROPion XL 150 MG TAB PO SCH (09:00)
--- NOTE | 2018-02-19 13:11 | HOSPPROG ---
Hospitalist Progress Note Assessment/Plan: #SAH: resume asa in 7 days, no further imaging required per NS. Stitches 7-10 days #Depression: discussed with Dr. Moe. Severe depression per her eval. Change Wellbutrin to 300mg SR tomorrow. Etoh cessation #HTN: hold KRYSTAL-I, HCTZ with ZULEMA #ZULEMA: Cr 1.5 today. Hold BP meds. Not drinking much fluids. Give gentle IVFs # Renal insufficiency: up again today. Hold KRYSTAL-I, HCTZ #Gait instability: received high-dose # abnormal gait, high-dose vitamin B12 and thiamine given continue PT #Etoh dependence: counseled on cessation. Wants to quit, CM to provide resources #Diet: regular #DVT ppx: SCDS Disp: can likely DC tomorrow if labs improve. IVFs this reginald Subjective: no dizziness Objective: Vital Signs Temp Pulse Resp BP Pulse Ox 36.3 C 83 18 118/81 H 89 L 02/19/18 08:00 02/19/18 08:00 02/19/18 08:00 02/19/18 08:43 02/19/18 08:00 Laboratory Results 02/19/18 05:05 02/18/18 02/19/18 02/20/18 05:59 05:59 05:59 Intake Total 1550 Balance 1550 PT 14.3 SEC (12.0-15.0) 02/14/18 17:24 INR 1.09 (0.83-1.16) 02/14/18 17:24 - Time Spent With Patient Time Spent with Patient: greater than 35 minutes Time Spent with Patient: Greater than 35 minutes spent on this patients care, greater than 50% of time spent counseling, educating, and coordinating care regarding the above mentioned plan. - Physical Exam Eyes: PERRL Ears, Nose, Mouth, Throat: moist mucous membranes, other (left forehead laceration, sutured) Cardiovascular: regular rate and rhythym Respiratory: no respiratory distress Gastrointestinal: normoactive bowel sounds Genitourinary: No rain in urethra Musculoskeletal: full muscle strength Neurologic: CN II-XII Intact, other (mild hand tremor) Psychiatric: No encephalopathic ICD10 Worksheet Patient Problems: Problems Problem Status Onset History of alcohol abuse Acute Subarachnoid hemorrhage Acute
[2018-02-19] MEDS ORDERED: buPROPion SR 150 MG TAB PO ONE (13:46)
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
--- NOTE | 2018-02-19 15:59 | ASMTLCPROG ---
Notes Note: Notes: TLC consulted with Psychiatrist, Dr. Moe. TLC met with pt to discuss referrals. Pt is considering f/u with an [facility] substance abuse program. Pt identifies alcohol as a primary issue. Discussed options. Pt is considering either [place] or [facility]. Pt reported his son is assisting with researching various program options. Date Signed: 02/19/2018 03:59 PM Electronically Signed By:Anahi Law
[2018-02-19] MEDS ORDERED: NS 1,000 ML IV SCH (17:00)
[2018-02-19] MEDS: ACETAMINOPHEN 325 MG TAB PO PRN (17:25)
[2018-02-19] MEDS: ATORVASTATIN CALCIUM 10 MG TAB PO SCH (21:02)
[2018-02-19] MEDS: traZODone 50 MG TAB PO PRN (21:02)
[2018-02-20] MEDS: LORazepam 0.5 MG TAB PO PRN (01:46)
[2018-02-20 08:16] VITALS: BP 121/65
[2018-02-20] MEDS ORDERED: buPROPion XL 150 MG TAB PO SCH ×2 (09:00→11:45)
[2018-02-20] MEDS ORDERED: buPROPion SR 150 MG TAB PO SCH (09:00)
[2018-02-20] MEDS: THIAMINE HCL 100 MG TAB PO SCH (09:16)
[2018-02-20] MEDS: MULTIVITAMINS 1 EACH TAB PO SCH (09:17)
[2018-02-20] MEDS: FOLIC ACID 1 MG TAB PO SCH (09:17)
[2018-02-20] MEDS: DULoxetine 60 MG CAP PO SCH (09:17)
[2018-02-20] MEDS: SENNOSIDES/DOCUSATE SODIUM TAB PO SCH (09:17)
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
[2018-02-20] MEDS ORDERED: CARBOXYMETHYLCELLULOSE 1% 0.4 ML DROPERETTE EACHEYE PRN (11:56)
--- NOTE | 2018-02-20 14:42 | GDS ---
DISCHARGE DIAGNOSES: 1. Chronic kidney disease, baseline creatinine 1.5-1.7. 2. Alcohol dependence. 3. Subarachnoid hemorrhage. 4. Major depressive disorder. 5. Insomnia. 6. Head laceration. 7. Multiple falls. 8. Hypertension. CONSULTATIONS: 1. Neurosurgery. 2. Psychiatry. HISTORY OF PRESENT ILLNESS: A 67-year-old male with alcohol dependence, major depressive disorder, w ho presented after multiple falls. He had fallen each of the 3 nights prior to admission and injured his right hip, left foot and forehead. He was seen at [facility], underwent trauma susan luation with CT head, CT-spine, abdomen, and pelvis that were all negative. He was sent to [facility] but c ontinued to have problems with his gait, so was sent to [facility]. Brain MRI in the emergency room reveale d a traumatic subarachnoid hemorrhage. HOSPITAL COURSE BY PROBLEM: 1. Subarachnoid hemorrhage: Evaluated by Neurosurgery. No surgical intervention needed. Will disc ontinue aspirin as patient could drink again and is at high risk for subsequent falls. 2. Alcohol dependence: Counseled on cessation by me and Dr. Moe with Psychiatry. 3. Major depressive disorder: Dr. Moe evaluated him, recommended changing Wellbutrin to 300 mg o nce daily and continue duloxetine. Stop trazodone as increased risk for serotonin syndrome. 4. Multiple falls: Multifactorial, with Ambien, alcohol. Discontinue his home dose of Ambien. 5. Insomnia: Trazodone was not helpful. Can trial melatonin and educated on sleep hygiene. 6. Hypertension: Blood pressure has been stable off his BP meds due to ZULEMA. Will hold these until he has a followup blood pressure with his PCP on Saturday. 7. CKD: Reviewed outside records at [facility]. Creatinine was 2 there, per his PCP, Dr. Kash mckeon, 1.5 a couple months ago. Renal ultrasound showed no hydronephrosis. Avoid NSAIDs. 8. Possible left kidney mass: The ultrasound showed a possible 2.5 cm solid mass at the junction of the mid inferior pole of the left kidney. I compared this to the CT report from [facility] on 04/16, and CT abdomen and pelvis showed normal kidneys. Recommend followup imaging in 3-6 months. 9. Head laceration: Follow up with [facility] to remove sutures in the next 1-2 days. DISPOSITION: Patient is stable for discharge home. FOLLOWUP: 1. Dr. Galvan, his PCP. 2. BMP on Saturday, 02/24. 3. Repeat blood pressure. Holding KRYSTAL and hydrochlorothiazide until repeat BMP. 4. Repeat imaging for possible left kidney mass. 5. Pursue intensive outpatient or inpatient rehab for alcohol. PHYSICAL EXAMINATION: VITAL SIGNS: Today, temperature 36.9, blood pressure 121/65, heart rate in th e 70s, respirations 14, 90% on room air. GENERAL: No acute distress. HEENT: Left forehead lacerat ion sutured, healing well. CV: Regular rate and rhythm. LUNGS: Clear. No crackles or wheezing. ABDOMEN: Soft, nontender, nondistended. Positive bowel sounds. : No Morin. MUSCULOSKELETAL: 5 /5 upper and lower extremity strength. NEURO: 2 through 12 intact. PSYCH: Alert and oriented x3. Time spent on discharge: Greater than 45 minutes at bedside with patient, answering questions, revie wing labs, imaging and medications. Copy requested to: Dr. Galvan, fax [phone] /[id number]/[facility]
--- NOTE | 2018-02-20 14:57 | ASMTLACE ---
LISA Length of stay for Answers: 4-6 days current admission Acuity / Level of Answers: Yes Care: Did the patient have an inpatient admission? Comorbidities - select Answers: History of falls all that apply Other Notes: HTN # of Emergency department Answers: 1-2 visits in the last 6 months Social determinants Answers: History of substance abuse (ETOH, street drugs, prescription drugs, etc.) Mental health diagnosis (anxiety, depression, pers onality disorders, etc.) Score: 18 Date Signed: 02/20/2018 02:57 PM Electronically Signed By:MELINA Miller
--- NOTE | 2018-02-20 15:08 | ASMTCMCOM ---
CM Note CM Note Notes: Pt medically stable for d/c home. Pt has had psych and [facility] consults, see notes. Pt strongly encouraged to commit to at least and IOP ETOH recovery program. Pt reports his son is researching IOP alcohol treatment and pt declines any further assistance with ETOH resources. Pt provided a list of psychiatrists near him, will need to have meds monitored/adjusted, pt states he is hopeful the ETOH recovery program he finds will have a psychiatrist. No CM d/c needs identified. Date Signed: 02/20/2018 03:07 PM Electronically Signed By:MELINA Miller
[2018-02-20] MEDS ORDERED: MELATONIN 3 MG TAB PO SCH (21:00)
--- NOTE | 2018-02-21 15:18 | ASDISCHSUM ---
Discharge Information Plan Status:Home with No Needs Medically Cleared to Leave: Discharge Date:02/20/2018 06:42 PM CM D/C Disposition:Home, Routine, Self-Care ADT D/C Disposition:Home, Routine, Self-Care Projected Discharge Date:02/18/2018 11:00 AM Transportation at D/C: Discharge Delay Reason: Follow-Up Date:02/18/2018 11:00 AM Discharge Slot: Final Diagnosis: Placement Information Referral Type:*Assisted/SNF Referral ID:[id number] Provider Name: Address 1: Phone Number: Address 2: Fax Number: City: Selection Factors: State: Patient Contact Information Contact Name:CHACHA Relationship:Friend Address: Work Phone: [facility]:[place] Alternate Phone: [facility] Code:[place] [address] Email: Financial Information Financial Class:Medicare Advantage Plans Primary Plan Desc:[facility] [email or web address] PLANS Primary Plan Number:[id number] Secondary Plan Desc: Secondary Plan Number: Assessment Information LACE LACE Length of stay for Answers: 4-6 days current admission Acuity / Level of Answers: Yes Care: Did the patient have an inpatient admission? Comorbidities - select Answers: History of falls all that apply Other Notes: HTN # of Emergency department Answers: 1-2 visits in the last 6 months Social determinants Answers: History of substance abuse (ETOH, street drugs, prescription drugs, etc.) Mental health diagnosis (anxiety, depression, pers onality disorders, etc.) Score: 18 Date Signed: 02/20/2018 02:57 PM Electronically Signed By:MELINA Miller [facility] Progress Note CM Note CM Note Notes: Long conversation with patient. He recently moved and hasn't fully unpacked this is difficult for him-living in disorganization. 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 Patient thinks that he can ask for 2 weeks off to get organized, find a therapist, go to an AA grp at his druze, check with his ins about IOP ETOH tx, and ask for family/friend support in unpacking and getting organized. Date Signed: 02/16/2018 05:04 PM Electronically Signed By:Kerry Mcgee LCSW [facility] Progress Note CM Note [facility] Note Notes: I met with patient to discuss PT recommendation for SNF or home with supervision. He wants to go home and does not want to inconvience either of his two daughters with supervising him. He does, however, want a few more days in the hospital or some other "lower level of care" before returning home. I explained how SNF rehab would fulfill this desire. 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 He does endorse wanting to quit drinking and believes that this hospitalization has been a "wake up call." He says that he will have his daughters visit [email or web address] and [facility] to see if they would be suitable. I encouraged him to make a decision in anticipation of d/c in the next day or so. Case Management will follow. Date Signed: 02/17/2018 04:23 PM Electronically Signed By:Paz Branch RN [facility] Progress Note CM Note CM Note Notes: Pt is clinically accepted at both [facility] and [facility] and does not want to d/c to [facility]. Pt is provided Medicare ETOH resources, reports he will start to make calls to see if alcohol rehab is an option. Pt reports he just started seeing a therapist with [facility], he wants to talk to her for guidance. Pt also to talk to his dghtr this evening for support on what to do at d/c. PT rec home/24/hr supervision/ETOH rehab today. While pt has dghtrs for support, pt reports he will not have 24/hr supervision between friends/family. D/c plan of care: Home or ETOH rehab Date Signed: 02/18/2018 03:21 PM Electronically Signed By:MELINA Miller [facility] Progress Note Notes Note: Notes: [facility] consulted with Psychiatrist, Dr. Moe. [facility] met with pt to discuss referrals. Pt is considering f/u with an [facility] substance abuse program. Pt identifies alcohol as a primary issue. Discussed options. Pt is considering either [facility] or [facility]. Pt reported his son is assisting with researching various program options. Date Signed: 02/19/2018 03:59 PM Electronically Signed By:Anahi Law [facility] CM Progress Note CM Note CM Note Notes: Pt medically stable for d/c home. Pt has had psych and [facility] consults, see notes. Pt strongly encouraged to commit to at least and IOP ETOH recovery program. Pt reports his son is researching IOP alcohol treatment and pt declines any further assistance with ETOH resources. Pt provided a list of psychiatrists near him, will need to have meds monitored/adjusted, pt states he is hopeful the ETOH recovery program he finds will have a psychiatrist. No CM d/c needs identified. Date Signed: 02/20/2018 03:07 PM Electronically Signed By:MELINA Miller Intervention Information Intervention Type:*IM-Signed Date of Service:02/20/2018 02:06 PM Patient Type:Inpatient Staff Member:Rukhsana Hammond Hours: Discipline: Severity: Comment:
== END 2018-02-20 18:42 | disposition home or self-care (01) | DRG 87 ==
LOC: F3N 22:18 → OBSVTOIN 02-15 16:55
PROVIDERS: ADMIT Internal Medicine; ATTEND Internal Medicine
DX: S06.6X0A Traumatic subarachnoid hemorrhage without loss of consciousness, initial encounter (principal); W18.39XA Other fall on same level, initial encounter; F32.9 Major depressive disorder, single episode, unspecified; R29.6 Repeated falls; R27.0 Ataxia, unspecified; I12.9 Hypertensive chronic kidney disease with stage 1 through stage 4 chronic kidney disease, or unspecified chronic kidney disease; N18.9 Chronic kidney disease, unspecified; F10.20 Alcohol dependence, uncomplicated; G47.00 Insomnia, unspecified; Z87.891 Personal history of nicotine dependence
CPT/HCPCS: 82607-90; 82652-90; 92507-GN; 92523-GN; 97112-GP; 97116-GP; 97161-GP; 97166-GO; 97530-GO; 97530-GP; 97535-GO; A9585; G0378; G0480; G8978-GP-CJ; G8979-GP-CI; G8980-GP-CI; G8987-GO-CJ; G8988-GO-CI; G8989-GO-CI; G9168-GO-CI; G9169-GN-CI; J2060; J3411